=== PATIENT | male | born 1945 | race Caucasian/White ===

== ENCOUNTER 2017-02-12 22:37 | Emergency (ER) | payer MEDICARE, OTHER | END 2017-02-12 23:32 | disposition left against medical advice (07) | LOC: ER1 22:37 | DX: Z53.21 Procedure and treatment not carried out due to patient leaving prior to being seen by health care provider (principal) ==

== ENCOUNTER 2017-03-27 10:41 | Emergency (ER) | payer MEDICARE, OTHER ==
[2017-03-27 11:32] LABS: HEMOGLOBIN 15.9 gm/dl (14.0-17.5); RED BLOOD COUNT 5.55 M/UL (4.20-5.50); WHITE BLOOD COUNT 7.2 K/UL (4.5-11.0)
[2017-03-27 12:00] LABS: BUN/CREATININE RATIO 24 (0-10)
== END 2017-03-27 13:18 | disposition home or self-care (01) ==
LOC: ER1 10:41
PROVIDERS: Emergency Medicine
DX: R06.02 Shortness of breath (principal); R07.89 Other chest pain; I48.91 Unspecified atrial fibrillation; E10.9 Type 1 diabetes mellitus without complications; Z87.891 Personal history of nicotine dependence
CPT/HCPCS: 36415; 71010; 80053; 82550; 82553; 83874; 83880; 84484; 85025; 85379; 93005; 99285

== ENCOUNTER → 2021-01-24 | Outpatient (CLI) | payer MEDICARE, OTHER ==
[~2021-01-24] MED LIST: CALAN PO; CLARITIN10 M2 PO; DIGOXIN250 MCG PO; FLOMAX 0.4 MG0.4 MG PO; FLOVENT DISKUS50 MCG; GEMFIBROZIL600 MG PO; METFORMIN HCL1000 MG PO; NORVASC10 MG PO; NOVOLOG FL100 UNIT/1 SC; NOVOLOG FLEXPEN; OMNICEF 300 MG300 MG PO; PROTONIX 40 MG40 M1 PO; SPIRIVA RESPIMAT4 GM INH; TRESIBA SC; WARFARIN SODIUM2 MG PO; WARFARIN SODIUM5 MG PO; [UNRECOGNIZED DRUG - OTHER] PO
== END ==
LOC: HEART 5 01-22 10:00
DX: R06.02 Shortness of breath (principal); B94.8 Sequelae of other specified infectious and parasitic diseases; I08.2 Rheumatic disorders of both aortic and tricuspid valves; I77.810 Thoracic aortic ectasia; I70.0 Atherosclerosis of aorta
CPT/HCPCS: 93306

== ENCOUNTER 2022-05-20 23:52 | Emergency (ER) | payer MEDICARE, OTHER ==
[2022-05-21 00:18] LABS: HEMOGLOBIN 11.2 gm/dl (14.0-17.5); RED BLOOD COUNT 4.62 M/UL (4.20-5.50); WHITE BLOOD COUNT 10.3 K/UL (4.5-11.0)
[2022-05-21 00:44] LABS: BUN/CREATININE RATIO 25 (0-10)
== END 2022-05-21 01:15 | disposition left against medical advice (07) ==
LOC: ER1 23:52
PROVIDERS: Family Medicine
DX: R07.89 Other chest pain (principal); E11.65 Type 2 diabetes mellitus with hyperglycemia; R79.1 Abnormal coagulation profile; I48.91 Unspecified atrial fibrillation; J44.9 Chronic obstructive pulmonary disease, unspecified
CPT/HCPCS: 71045; 80053; 82550; 82553; 84439; 84443; 84484; 85025; 85610; 93005; 99283